=== PATIENT | male | born 1995 | race Caucasian/White ===

== ENCOUNTER → 2018-03-03 | Outpatient (CLI) | payer OTHER | LOC: M RAD 07:54 | DX: M51.86 Other intervertebral disc disorders, lumbar region (principal); M43.06 Spondylolysis, lumbar region; M54.5 Low back pain | CPT/HCPCS: 72131 ==

== ENCOUNTER 2018-03-08 16:59 | Emergency (ER) | payer OTHER ==
[2018-03-08] MEDS ORDERED: NEOSPORIN OINT 0.9 GM PKT (FLOOR STOCK) As Ordered (20:21)
[2018-03-08] MEDS: NEOSPORIN OINT 0.9 GM PKT (FLOOR STOCK) TOP (20:30)
[2018-03-08] MEDS: BACITRACIN OINT 30GM TOP (20:30)
== END 2018-03-08 20:38 | disposition home or self-care (01) ==
LOC: M ED 16:59
DX: S81.831A Puncture wound without foreign body, right lower leg, initial encounter (principal); S80.811A Abrasion, right lower leg, initial encounter; W01.10XA Fall on same level from slipping, tripping and stumbling with subsequent striking against unspecified object, initial encounter; Y92.9 Unspecified place or not applicable; Y93.89 Activity, other specified; Y99.9 Unspecified external cause status; D16.21 Benign neoplasm of long bones of right lower limb; F41.9 Anxiety disorder, unspecified; F17.220 Nicotine dependence, chewing tobacco, uncomplicated; Z79.899 Other long term (current) drug therapy
CPT/HCPCS: 73590